=== PATIENT | male | born 1950 | race Caucasian/White ===

== ENCOUNTER → 2024-06-30 | Outpatient (CLI) | payer MEDICARE ==
--- NOTE | 2024-06-30 14:32 | XR ---
EXAMINATION TYPE: XR KUB DATE OF EXAM: 06/30/2024 2:27 PM COMPARISON: None. CLINICAL INDICATION: Male, 73 years old with history of N20.1 CALCULUS OF URETER, TECHNIQUE: Single view of the abdomen. FINDINGS: Small bowel demonstrates no evidence for dilatation or air fluid levels. Gas and fecal material is seen in non-distended colon. No convincing evidence for pneumoperitoneum. No unusual calcifications. The lung bases are clear. The osseous structures are intact. IMPRESSION: 1. Overall nonobstructive bowel gas pattern. [facility], , 06/30/2024 2:30 PM
== END | disposition home or self-care (01) ==
LOC: RADXRMAIN 14:16
PROVIDERS: ATTEND Urology
DX: N20.1 Calculus of ureter (principal)
CPT/HCPCS: 74018

== ENCOUNTER → 2024-08-07 | Outpatient (CLI) | payer MEDICARE ==
--- NOTE | 2024-08-07 14:07 | XR ---
EXAMINATION TYPE: XR KUB DATE OF EXAM: 08/07/2024 9:33 AM COMPARISON: 06/30/2024 CLINICAL INDICATION: Male, 73 years old with history of N20.1 calculus, TECHNIQUE: XR KUB view(s) obtained. FINDINGS: There is a normal bowel gas pattern. Psoas margins are normal. No organomegaly is present. No suspicious calcifications are identified. Some fecal debris is through the colon. IMPRESSION: 1. Mild fecal retention [facility], , 08/07/2024 2:05 PM
== END | disposition home or self-care (01) ==
LOC: RADXRMAIN 09:18
PROVIDERS: ATTEND Urology
DX: N20.1 Calculus of ureter (principal); K56.41 Fecal impaction
CPT/HCPCS: 74018

== ENCOUNTER → 2024-08-22 | Outpatient (CLI) | payer OTHER ==
--- NOTE | 2024-08-22 13:55 | US ---
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 Passed a renal stone 3-4 weeks ago. Hx HTN TECHNIQUE: Grayscale imaging of the bilateral kidneys and urinary bladder: FINDINGS: EXAM MEASUREMENTS: Right Kidney: 13.2 x 4.5 x 6.3 cm Left Kidney: 12.3 x 5.7 x 4.0 cm Post Void Residual Volume: mL Right Kidney: wnl, no evidence for hydronephrosis, mass or renal calculus. Left Kidney: wnl, no evidence for hydronephrosis, mass or renal calculus. Bladder: Not fully distended, Appears WNL as visualized. Bilateral Jets seen: Not able to assess Normal Post Void Residual: There is no evidence for hydronephrosis at this point in time. No nephrolithiasis is seen. No tim s are identified. The urinary bladder is anechoic. IMPRESSION: 1. No acute abnormality renal ultrasound [facility], Workstation: [facility], 08/22/2024 1:52 PM
== END | disposition home or self-care (01) ==
LOC: RADUSWWP 13:10
PROVIDERS: ATTEND Urology
DX: N13.2 Hydronephrosis with renal and ureteral calculous obstruction (principal)
CPT/HCPCS: 76770